=== PATIENT | male | born 1975 | race Caucasian/White ===

== ENCOUNTER → 2018-02-24 10:51 | Outpatient (CLI) | payer BC, SELFPAY ==
--- NOTE | 2018-02-24 10:53 | ECHOD_ITS ---
Reason For Study: AFIB Procedure This was a 2D Doppler, Color Flow transthoracic echocardiogram. Exam performed in department. Left Ventricle Mildly dilated left ventricle. The estimated ejection fraction is 50-55 %. Stage 1 diastolic dysfunction. There is mild global hypokinesis of the left ventricle. Right Ventricle Moderately dilated right ventricle. Normal systolic function. Atria Normal left atrium. Normal right atrium. Normal atrial septum. Probable patent foramen ovale. Saline contrast study demonstrates trivial right to left interatrial shunt. Mitral Valve The mitral valve is structurally normal. No prolapse or stenosis seen. Trivial mitral valve insufficiency. Tricuspid Valve Normal tricuspid valve. Trivial tricuspid valve insufficiency. Right ventricular systolic pressure estimated to be 35 mmHg. Aortic Valve Normal aortic valve. Trisinus/trileaflet aortic valve. Pulmonic Valve Normal pulmonic valve. Great Vessels Normal aortic root. Normal arch. Normal inferior vena cava. Inferior vena cava collapse with sniff. Pericardium/Pleural No pericardial effusion. Medication 22 gauge I.V. with prn adaptor inserted into right arm. Performed a rapid injection of agitated mix of 9 cc saline and 1cc air to assess for atrial septal defect. MMode/2D Measurements & Calculations LVIDd: 5.0 cm IVSd: 0.86 cm Ao root diam: 3.1 cm LVIDs: 2.9 cm LVPWd: 0.84 cm RVDd: 3.9 cm FS: 43.2 % LAV(MOD-bp): 52.5 ml EDV(MOD-sp4): 138.1 ml SV(MOD-sp4): 73.2 ml LAV(MOD-bp) Indexed: 24.7 ml/m2 ESV(MOD-sp4): 64.9 ml LAV(MOD-sp2): 77.1 ml EF(MOD-sp4): 53.0 % LAV(MOD-sp4): 37.6 ml LA A4 area: 14.9 cm2 RA A4 area: 15.3 cm2 Time Measurements MV dec time: 0.20 sec Doppler Measurements & Calculations MV E max lavelle: 101.6 cm/sec Lat Peak E' Lavelle: 14.5 cm/sec Med Peak E' Lavelle: 8.1 cm/sec MV A max lavelle: 64.9 cm/sec E/E' lat: 7.0 E/E' med: 12.6 MV E/A: 1.6 Ao V2 max: 136.0 cm/sec LV V1 max: 99.1 cm/sec PA V2 max: 104.3 cm/sec Ao max P.4 mmHg LV V1 max P.9 mmHg TR max lavelle: 261.5 cm/sec TR max P.4 mmHg Interpretation Summary The estimated ejection fraction is 50-55 %. LV Function appears on lower limits of nromal. Stage 1 diastolic dysfunction. Moderately dilated right ventricle. Probable patent foramen ovale. Saline contrast study demonstrates trivial right to left interatrial shunt. Trivial mitral valve insufficiency. Trivial tricuspid valve insufficiency. Right ventricular systolic pressure estimated to be 35 mmHg. Mildly dilated left ventricle. There is no comparison study available. Ordering Physician: Jarrell Verma Referring Physician: Jarrell Verma Performed By: Noemi Gold RDCS
--- NOTE | 2018-02-24 12:59 | STRESSREP ---
Stress Test Report Treadmill EKG results: Resting EKG shows sinus bradycardia with PVCs, normal axis, normal intervals, no evidence of previous myocardial infarction. Treadmill EKG: Patient exercise according to Jassi protocol for 12 minutes and 0 seconds achieving a maximum workload of 13.40 METS. Resting heart rate was initially 67 beats a minute shellie to maximum 157 beats a minute which represents 88% of the maximal age-predicted heart rate. Resting blood pressure was 130/80, shellie to maximum of 160/66. Test was terminated due to leg discomfort. During exercise the patient's heart rate increased as expected. As the patient's heart rate increased his PVCs decreased proportionally. Patient did have several PVCs at peak exercise. He had no dynamic EKG changes to suggest ischemia. During recovery the patient's heart rate improved and the patient had several episodes of wide-complex triplets at 1 minute 44 seconds into recovery. They appeared to be PACs with aberrancy vs. ventricular in origin. Conclusions probably normal adequate treadmill EKG. Negative for ischemia by EKG criteria. No anginal symptoms noted. Mild PVCs during exercise which improved as his heart rate increased, with possible aberrant versus ventricular triplets during recovery. Appropriate blood pressure response to exercise. Above average exercise capacity for age. Patient tolerate procedure, well no complications. Recommend clinical correlation or alternative mode of testing if coronary ischemia is strongly suspected given the patient's PVCs and arrhythmias during exercise and into recovery.
--- NOTE | 2018-02-24 13:04 | STRESSREP_ITS ---
Stress Test Report Treadmill EKG results: Resting EKG shows sinus bradycardia with PVCs, normal axis, normal intervals, no evidence of previous myocardial infarction. Treadmill EKG: Patient exercise according to Jassi protocol for 12 minutes and 0 seconds achieving a maximum workload of 13.40 METS. Resting heart rate was initially 67 beats a minute shellie to maximum 157 beats a minute which represents 88% of the maximal age-predicted heart rate. Resting blood pressure was 130/80 , shellie to maximum of 160/66. Test was terminated due to leg discomfort. During exercise the patient's heart rate increased as expected. As the patient' s heart rate increased his PVCs decreased proportionally. Patient did have several PVCs at peak exercise. He had no dynamic EKG changes to suggest ischemia. During recovery the patient's heart rate improved and the patient had several episodes of wide-complex triplets at 1 minute 44 seconds into recovery. They appeared to be PACs with aberrancy vs. ventricular in origin. Conclusions probably normal adequate treadmill EKG. Negative for ischemia by EKG criteria. No anginal symptoms noted. Mild PVCs during exercise which improved as his heart rate increased, with possible aberrant versus ventricular triplets during recovery. Appropriate blood pressure response to exercise. Above average exercise capacity for age. Patient tolerate procedure, well no complications. Recommend clinical correlation or alternative mode of testing if coronary ischemia is strongly suspected given the patient's PVCs and arrhythmias during exercise and into recovery.
== END ==
PROVIDERS: Visit Provider Internal Medicine Cardiovascular Disease
DX: I48.0 Paroxysmal atrial fibrillation (principal)
CPT/HCPCS: 93017; 93306; A4216